=== PATIENT | female | born 1950 | race African-American/Black ===

== ENCOUNTER → 2016-04-30 | Outpatient (CLI) | payer OTHER, MEDICARE ==
[~2016-04-30] VITALS: Ht 162.6 cm; Wt 69.4 kg
[~2016-04-30] MED LIST: ADVAIR 250/501 DISK IH; ANTIVERT25 MG PO; CIPRO HC OTIC S10 ML LEFT EAR; CLARITHROMYCIN250 MG PO; CLARITHROMYCIN500 MG PO; COUGH DROPS1 EAC1 MM; LEVAQUIN250 MG PO; LEVOTHROID,S0.025 MG PO; LEVOTHROID100 MCG PO; LO-DOSE ASPIRIN81 M2 PO; MECLIZINE HCL25 MG PO; MUCINEX DM ER1 EACH PO; NAPROXEN500 MG PO; NOHOMEMEDS; NYQUIL D COLD295 ML PO; PREDNISONE10 MG PO; PRILOSEC OTC20 MG PO; PRILOSEC40 MG PO; PROAIR HFA8.5 GM IH; SYNTHROID88 MCG PO; TAMIFLU75 MG PO; TENORMIN25 MG PO; TYLENOL REGULA325 MG PO; ZANTAC150 MG PO; ZOFRAN ODT4 MG PO; ZOFRAN4 MG PO
== END | disposition home or self-care (01) ==
LOC: AMB 07:00
PROC: 0DJD8ZZ Inspection of Lower Intestinal Tract, Via Natural or Artificial Opening Endoscopic (ICD-10-PCS; principal; 2016-04-30)
DX: Z12.11 Encounter for screening for malignant neoplasm of colon (principal); Z09 Encounter for follow-up examination after completed treatment for conditions other than malignant neoplasm; Z86.010 Personal history of colon polyps; Z80.0 Family history of malignant neoplasm of digestive organs; K57.30 Diverticulosis of large intestine without perforation or abscess without bleeding; K64.8 Other hemorrhoids; K21.9 Gastro-esophageal reflux disease without esophagitis; I10 Essential (primary) hypertension; E03.9 Hypothyroidism, unspecified; Z82.49 Family history of ischemic heart disease and other diseases of the circulatory system; Z88.8 Allergy status to other drugs, medicaments and biological substances; Z82.5 Family history of asthma and other chronic lower respiratory diseases; Z88.0 Allergy status to penicillin; Z91.040 Latex allergy status
CPT/HCPCS: B4087; J2250; J3010

== ENCOUNTER 2016-09-18 06:36 | Emergency (ER) | payer OTHER, MEDICARE ==
[~2016-09-18] VITALS: Ht 162.6 cm; Wt 67.5 kg
[2016-09-18 07:30] LABS: EOSINOPHIL (%) 0.8 % (0-5); HEMATOCRIT 40.1 % (36.0-46.0); IMMATURE GRANULOCYTE (%) 0.2 % (0.0-0.7); INSTRUMENT ABS NEUTROPHIL CT 3.1 K/uL; LYMPHOCYTE COUNT 1.7 K/uL (1.0-2.8); MCH 26.7 PG (29.0-34.0); MCHC 31.9 G/DL (30.0-36.0); MCV 83.5 FL (83-99); MEAN PLAT.VOLUME 11.4 uM^3 (9.5-12.4); MONOCYTE (%) 7.1 % (3-12); MONOCYTE COUNT 0.4 K/uL (0-0.8); NEUTROPHIL COUNT 3.1 K/uL (1.8-6.4); PLATELET COUNT 189 K/uL (156-360); RBC DIS.WIDTH-CV 13.6 % (11.8-14.6); RBC DIS.WIDTH-SD 41.7 % (39-53); WHITE BLOOD COUNT 5.3 K/uL (4.1-10.2)
[2016-09-18 07:48] LABS: CHLORIDE 102 mEq/L (99-109); POTASSIUM 3.6 mEq/L (3.7-5.4); SODIUM 138 mEq/L (136-147)
[2016-09-18 07:50] LABS: GLUCOSE 99 mg/dL (70-99)
[2016-09-18 07:51] LABS: ANION GAP 9 MEQ/L (2-14)
[2016-09-18 07:54] LABS: GFR ESTIMATE (CALCULATED) > 59 mL/min/
[2016-09-18 07:55] LABS: UREA NITROGEN (BUN) 9 mg/dL (9-23)
[2016-09-18] MEDS ORDERED: CEFTIN500 MG PO (09:19)
[2016-09-18 09:39] VITALS: BP 141/74
== END 2016-09-18 09:44 | disposition home or self-care (01) ==
LOC: EME 06:36
PROVIDERS: Emergency Medicine
DX: J06.9 Acute upper respiratory infection, unspecified (principal); R51 Headache; R11.0 Nausea; E03.9 Hypothyroidism, unspecified; K21.9 Gastro-esophageal reflux disease without esophagitis; Z88.0 Allergy status to penicillin
CPT/HCPCS: 70450; 80048; 85025; 99281; 99285; J1885; J2765; J7030